=== PATIENT | female | born 1960 | race Caucasian/White ===

== ENCOUNTER 2018-11-13 14:38 | Emergency (ER) | payer BC, MEDICAID ==
[2018-11-13] MEDS: ONDANSETRON 4 MG INJ IV (17:18)
[2018-11-13] MEDS: KETOROLAC 30 MG INJ IV (17:18)
== END 2018-11-13 19:32 | disposition home or self-care (01) ==
LOC: E/R 14:38
DX: N30.00 Acute cystitis without hematuria (principal); R40.2142 Coma scale, eyes open, spontaneous, at arrival to emergency department; R40.2252 Coma scale, best verbal response, oriented, at arrival to emergency department; R40.2362 Coma scale, best motor response, obeys commands, at arrival to emergency department
CPT/HCPCS: 36415; 74176; 80053; 81001; 83690; 85025; 96374; 96375; 99285-25